=== PATIENT | male | born 1995 | race African-American/Black ===

== ENCOUNTER 2023-11-11 16:25 | Emergency (ER) | payer OTHER ==
[~2023-11-11] VITALS: Ht 170.2 cm; Wt 73.0 kg
[2023-11-11 16:30] VITALS: O2SAT 99
[2023-11-11] MEDS: IBUPROFEN 600MG TABLET PO ONE (17:56)
[2023-11-11] MEDS ORDERED: IBUP-2029 MT (18:02)
[2023-11-11] MEDS ORDERED: METH-653 MT (18:02)
[2023-11-11 18:23] VITALS: BP 118/82; PULSE 74; RESP 18; TEMP 98.5
== END 2023-11-11 18:32 | disposition home or self-care (01) ==
LOC: ER 16:25
DX: S63.501A Unspecified sprain of right wrist, initial encounter (principal); V49.49XA Driver injured in collision with other motor vehicles in traffic accident, initial encounter; Y93.89 Activity, other specified; Y92.89 Other specified places as the place of occurrence of the external cause; Y99.8 Other external cause status; J45.909 Unspecified asthma, uncomplicated
CPT/HCPCS: 29125; 73110; 73130; 99284